=== PATIENT | male | born 1995 | race African-American/Black ===

== ENCOUNTER 2018-04-15 20:18 | Emergency (ER) | payer OTHER ==
[2018-04-15 20:25] VITALS: BP 145/89
--- NOTE | 2018-04-15 21:33 | ED Physician Documentation ---
PD HPI UPPER EXT INJURY - Stated complaint Stated Complaint: RT HAND VS MARILIN NAIL - Chief complaint Chief Complaint: Trauma Ext - History obtained from History obtained from: Patient - History of Present Illness Location: Right, Hand Type of injury: Fall (He said he slipped on a slick piece of wood on the ground that had some early [place]. He fell forward and hit his right hand onto a small marilin nail. He has a puncture wound in the palm. He came directly here and had not cleaned it as yet. He is not sure about his tetanus status but states he just got a series of immunizations and vaccines a couple of months ago at the [facility] so presumption is he is up-to-date on his tetanus. He denies any numbness or tingling in the fingers and does not hurt with finger movement.) Where injury occurred: Home Timing - onset: Today (just [employer]UD[employer]) Timing - details: Abrupt onset Worsened by: Palpating. No: Moving Associated symptoms: No: Weakness, Numbness Review of Systems Neurologic: denies: Focal weakness, Numbness, Altered mental status, Head injury PD PAST MEDICAL HISTORY - Past Medical History Past Medical History: No - Past Surgical History Past Surgical History: No - Allergies Allergies/Adverse Reactions: Allergies Allergy/AdvReac Type Severity Reaction Status Date / Time No Known Drug Allergies Allergy Verified 04/15/18 20:24 - Social History Does the pt smoke?: No Smoking Status: Never smoker Does the pt drink ETOH?: Yes Does the pt have substance abuse?: No - Immunizations Immunizations are current?: Yes - POLST Patient has POLST: No PD ED PE NORMAL - Vitals Vital signs reviewed: Yes - General General: Alert and oriented X 3, No acute distress, Well developed/nourished - Derm Derm: Normal color, Warm and dry - Extremities Extremities: Other (right thenar area with small puncture that does not look too deep. Not tender in thenar muscles deeper and no pain with thumb ROM. Normal sensation, color, cap refill in thumb/index finger. ) - Neuro Neuro: Alert and oriented X 3, No motor deficit, No sensory deficit, Normal speech Results - Vitals Vitals: Oxygen O2 Source Room air PD MEDICAL DECISION MAKING - ED course Complexity details: considered differential, d/w patient Departure - Departure Disposition: 01 Home, Self Care Clinical Impression: Fall from slip, trip, or stumble Qualifiers: Encounter type: initial encounter Qualified Code(s): W01.0XXA - Fall on same level from slipping, tripping and stumbling without subsequent striking against object, initial encounter Puncture wound of right palm Qualifiers: Encounter type: initial encounter Qualified Code(s): S61.431A - Puncture wound without foreign body of right hand, initial encounter Condition: Stable Record reviewed to determine appropriate education?: Yes Instructions: ED Wound Puncture General Follow-Up: MELISSA Solis [Provider Group] Comments: Clean the area with soap and water couple times a day and apply some ointment. Recheck if signs of infection develop. Tylenol or ibuprofen if needed for pains. Discharge Date/Time: 04/15/18 21:40
== END 2018-04-15 21:40 | disposition home or self-care (01) ==
LOC: ED 20:18
DX: S61.431A Puncture wound without foreign body of right hand, initial encounter (principal); W01.118A Fall on same level from slipping, tripping and stumbling with subsequent striking against other sharp object, initial encounter
CPT/HCPCS: 99282; 99283

== ENCOUNTER 2019-05-03 07:56 | Emergency (ER) | payer OTHER ==
[2019-05-03 08:17] VITALS: BP 127/62
--- NOTE | 2019-05-03 08:30 | ED Physician Documentation ---
PD HPI OPHTHO - Stated complaint Stated Complaint: LT EYE PX - Chief complaint Chief Complaint: Heent - History obtained from History obtained from: Patient - History of Present Illness Timing - onset: Yesterday Timing - details: Abrupt onset, Still present Location: Left Quality / character: Aching. No: Itching Associated symptoms: FB sensation (noted onset of FB sensation/irritation with blinking left eye after putting hooed sweatshirt on. Did not feel like he impacted the eye. No contacts. No URI symptoms.). No: Decreased vision Contributing factors: No: FB (not aware of something in eye, but feeling FB and he/friends looked at eye and irrigated it without noting FB nor getting improvement.), Wears contacts Similar symptoms before: Has not had sx before Recently seen: Not recently seen Review of Systems Eyes: reports: Irritation. denies: Decreased vision, Photophobia, Discharge Nose: denies: Rhinorrhea / runny nose, Congestion Throat: denies: Sore throat Respiratory: denies: Cough Skin: denies: Rash, Lesions PD PAST MEDICAL HISTORY - Past Medical History Past Medical History: No - Past Surgical History Past Surgical History: No - Present Medications Home Medications: Ambulatory Orders Medication Instructions Recorded Confirmed No Known Home Medications 05/03/19 05/03/19 - Allergies Allergies/Adverse Reactions: Allergies Allergy/AdvReac Type Severity Reaction Status Date / Time No Known Drug Allergies Allergy Verified 05/03/19 08:17 - Social History Does the pt smoke?: No Smoking Status: Never smoker Does the pt drink ETOH?: Yes Does the pt have substance abuse?: No - Immunizations Immunizations are current?: Yes - POLST Patient has POLST: No PD ED PE NORMAL - Vitals Vital signs reviewed: Yes - General General: Alert and oriented X 3, Well developed/nourished - HEENT HEENT: PERRL, EOMI, Moist mucous membranes, Pharynx benign PD ED PE EXPANDED - Eyes Eyes: Corneal FB (noted anterior left eye, just 1 mm size embedded on surface. Removes easily with just firm end of cotton tip applicator. He feels better with the proparacaine prior so hard to tell if FB removal feeling better separately. ), Fluorescein uptake Results - Vitals Vitals: Vital Signs - 24 hr 05/03/19 08:10 Temperature 37 C Heart Rate 58 L Respiratory 16 Rate Blood Pressure 127/62 O2 Saturation 98 Oxygen O2 Source Room air PD MEDICAL DECISION MAKING - ED course Complexity details: considered differential, d/w patient Departure - Departure Disposition: 01 Home, Self Care Clinical Impression: Corneal foreign body Qualifiers: Encounter type: initial encounter Laterality: left Qualified Code(s): T15.02XA - Foreign body in cornea, left eye, initial encounter Corneal abrasion Qualifiers: Encounter type: initial encounter Laterality: left Qualified Code(s): S05.02XA - Injury of conjunctiva and corneal abrasion without foreign body, left eye, initial encounter Condition: Stable Record reviewed to determine appropriate education?: Yes Instructions: ED Eye Injury Corneal Abrasion Follow-Up: TANNA BENAVIDES III, MD [Primary Care Provider] - Comments: He had a small speck of something on the front part of your eye ball. Its removed now and so it should feel less irritated with blinking and such. However there is an abrasion left that we will still take a day or so for healing so it should feel better but not completely immediately. It should resolve through the course of the day and into tomorrow. You can use lubricating eye drops or ointment. Tylenol or ibuprofen if needed for pains. Discharge Date/Time: 05/03/19 09:27
[2019-05-03] MEDS ORDERED: ERYTHROMYCIN OPHTH OINT 1 GM TUBE LEFTEYE STA (09:11)
== END 2019-05-03 09:27 | disposition home or self-care (01) ==
LOC: ED 07:56
DX: T15.02XA Foreign body in cornea, left eye, initial encounter (principal); S05.02XA Injury of conjunctiva and corneal abrasion without foreign body, left eye, initial encounter; X58.XXXA Exposure to other specified factors, initial encounter
CPT/HCPCS: 99282; 99283; J3490